=== PATIENT | female | born 1990 | race African-American/Black ===

== ENCOUNTER 2016-02-26 18:00 | Inpatient (IN) | payer OTHER ==
[~2016-02-26] VITALS: Ht 170.2 cm; Wt 93.4 kg
[~2016-02-26 18:00] MED LIST: PREN1TAB62 PO
[2016-02-26 21:00] VITALS: BP 98/58; PULSE 77; RESP 16
[2016-02-26 21:57] VITALS: Ht 170.2 cm; Wt 93.4 kg
[2016-02-26] MEDS ORDERED: CARBOPROST 250 MCG INJ IM PRN (22:00)
[2016-02-26] MEDS ORDERED: METHYLERGONOVINE 0.2 MG INJ IM PRN (22:00)
[2016-02-26] MEDS ORDERED: MISOPROSTOL 200 MCG TAB PR PRN (22:00)
[2016-02-26] MEDS ORDERED: OXYTOCIN 30 UNITS/LR 500 ML IV PRN (22:00)
[2016-02-26] MEDS ORDERED: BUTORPHANOL 2 MG INJ IV PRN (22:00)
[2016-02-26] MEDS ORDERED: LACTATED RINGER'S 1,000 ML IV PRN (22:00)
[2016-02-26] MEDS ORDERED: LIDOCAINE 1% (MPF) 30 ML INJ INJ PRN (22:00)
[2016-02-26] MEDS ORDERED: OXYTOCIN 30 UNITS/LR 500 ML IV SCH ×2 (22:00)
[2016-02-26] MEDS: LACTATED RINGER'S 1,000 ML IV SCH (22:01)
[2016-02-26 22:11] LABS: INR 0.94; PROTIME 12.6 Sec (12.2-14.2)
[2016-02-26 22:12] LABS: PARTIAL THROMBOPLASTIN TIME 28.9 Sec (25.0-35.0)
[2016-02-26 22:14] LABS: BASOPHILS % 0.4 % (0.0-2.0); EOSINOPHILS % 0.5 % (0.0-7.0); HEMATOCRIT 33.2 % (37.0-47.0); HEMOGLOBIN 11.1 g/dl (12.0-16.0); LYMPHOCYTES % 24.8 % (15.0-51.0); MEAN CORPUSCULAR HGB CONC 33.3 g/dl (32.0-37.0); MEAN PLATELET VOLUME 9.2 fl (7.4-10.4); MONOCYTE # 0.5 10^3/ul (0.3-0.9); MONOCYTES % 6.7 % (0.0-11.0); NEUTROPHIL # 5.4 10^3/ul (1.6-7.5); NEUTROPHILS % 67.6 % (39.0-77.0); PLATELET COUNT 205 10^3/UL (140-440); RED BLOOD COUNT 3.82 10^6/ul (4.20-5.40); RED CELL DISTRIBUTION WIDTH 13.9 % (11.5-14.5)
[2016-02-26 22:16] LABS: CONDITION 1
[2016-02-26 22:56] LABS: BARBITURATES NEGATIVE (NEGATIVE); BENZODIAZEPINES NEGATIVE (NEGATIVE); CANNABINOIDS NEGATIVE (NEGATIVE); COCAINE NEGATIVE (NEGATIVE); OPIATES NEGATIVE (NEGATIVE)
[2016-02-26] MEDS ORDERED: AMPICILLIN 2 GM/NS (PMX) 100 ML IV ONE (23:00)
[2016-02-26] MEDS ORDERED: MISOPROSTOL 25 MCG CAPSULE PO SCH (23:00)
[2016-02-26] MEDS ORDERED: MISOPROSTOL 100 MCG TAB PO SCH (23:30)
[2016-02-27] MEDS ORDERED: MISOPROSTOL 25 MCG CAPSULE PO SCH ×2 (01:00→03:00)
[2016-02-27] MEDS: AMPICILLIN 1 GM/NS (PMX) 50 ML IV SCH ×3 (02:27→11:00)
[2016-02-27] MEDS: LACTATED RINGER'S 1,000 ML IV SCH ×2 (04:40→07:11)
[2016-02-27] MEDS ORDERED: FENTAnyl 2MCG/ML-ROPIV 0.2% 100 ML ONE (05:37)
[2016-02-27] MEDS ORDERED: NALOXONE (0.4 MG/ML) INJ IV PRN (06:00)
[2016-02-27] MEDS ORDERED: FENTAnyl 2MCG/ML-ROPIV 0.2% 100 ML BAG EPI SCH (06:00)
[2016-02-27] MEDS ORDERED: MINERAL OIL LIGHT 10 ML VIAL TOP ONE (07:00)
--- NOTE | 2016-02-27 09:57 | HP ---
Date/Time of Note Date/Time of Note DATE: 02/27/16 TIME: 09:53 OB - History Hx of Present Free Text/Dictation 26 y//o female admitted in labor at term Last Menstrual Period: Jun 06, 2015 Estimated Due Date: Feb 25, 2016 : 3 Para: 1 Spontaneous : 1 Care: Good Care Ultrasounds: Normal mid trimester US Obstetrical Complications: None Medical Complications: None, Other (previous abdominal surgery ) Past Family/Social History * Past Medical, Surgical, Family and Obstetric Histories reviewed from chart. Blood Type: A+ Rubella: immune GBS Status: Negative HBsAG: Negative OB Admission Exam Vital Signs Vital Signs Vital Signs Date Time Temp Pulse Resp B/P Pulse Ox O2 Delivery O2 Flow Rate FiO2 02/26/16 21:00 98.7 77 16 98/58 Room Air Physical Exam HEENT: WNL Heart: Rhythm Normal Lungs: Clear, Equal Abdomen: WNL Extremities: Normal Reflexes: Normal Cervical Dilatation: 4cm Effacement: 75% Station: -3 Membranes: Intact Heart Rate: 140's Accelerations: Accelerations Present Decelerations: No Decelerations Varibility: Moderate Contractions on Admission: < 5 Minutes Apart Date/Time Contractions Began: 02/26/2015 Frequency of Contractions: q 5 Duration: >60 seconds Intensity: Moderate Last 72 hours Lab Results CBC & BMP 02/26/16 21:12 OB Assessment/Plan Other Assessment: term gestation labor pains Other plan: procees with labor CHEPE WALKER MD Feb 27, 2016 09:57
--- NOTE | 2016-02-27 10:52 | LDN ---
Date/Time of Note Date/Time of Note DATE: 02/27/16 TIME: 10:47 Delivery Summary vacuome extraction of a viable over intact perineum V/E was done because of deep variable deceleration of FHTs Assisted Vaginal Delivery: Vacuum Placenta Delivered: Spontaneously, Intact & Complete Meconium: none Perineum intact?: Yes Anesthesia type: Epidural Estimated blood loss: 300 Sponge & Needle done & correct: Yes All needle counts correct: Yes Any foreign bodies felt in the: No Problems: Infant Delivery Information Sex Sex: male Apgars 1 Minute: 9 5 Minute: 9 Suctioning Nose & mouth suctioned at james: Yes Delee suction performed: No Umbilical Cord Umbilical cord with: 3 Vessels Cord presentations: no nuchal cord Cord Blood was obtained: Yes Mother & Baby Disposition Disposition Mom & Baby to Maternity; Good: Yes (mother and baby were recovered in good condition ) CHEPE WALKER MD Feb 27, 2016 10:52
--- NOTE | 2016-02-27 12:51 | OPRPT ---
Intraop Record Datetime Report Generated by CPN: 02/27/2016 12:51 Datetime: 12/02/2015 21:08 Food Allergies/Reactions: PEACH SKIN Latex Allergies/Reactions: No Latex Allergies Datetime: 12/02/2015 21:06 Drug Allergies/Reactions: PT. DENIES Datetime: 12/02/2015 20:22 Drug Allergies/Reactions: peach/MO/HIVES (02/23/2015)
--- NOTE | 2016-02-27 12:51 | DELSUM ---
Delivery Summary A-C Datetime Report Generated by CPN: 02/27/2016 12:51 DELIVERY PERSONNEL Refrigerator Cabinetmaker: Mary Jane Carranza MATERNAL INFORMATION Delivery Anesthesia: Epidural Medications in Delivery: 30 UNITS OXYTOCIN/LR;MINERAL OIL Estimated Blood Loss (ml): 300 Placenta Cultured: No Maternal Complications: Other Other Maternal Complications: HX PP DEPRESSION, ANEMIA,MARIJUANA USE IN RN Comments: CORD TO LAB FOR DRUG SCREEN LABOR SUMMARY EDC: 02/25/2016 00:00 No. Babies in Womb: 1 Attempted: No Labor Anesthesia: Epidural LABOR INFORMATION Reason for Induction: Other Reason for Induction- Other: ELECTIVE/POST DATES/MD ORDERS Onset of Labor: 02/26/2016 22:55 Complete Dilatation: 02/27/2016 07:27 Cervical Ripening Agents: Cytotec @ Cervical Ripening Agents: Cytotec @ 50MCG PO Q4H MAX 6 DOSES, dose #1 given Oxytocin: N/A Group B Beta Strep: Positive (Annotations: PER PNR, URINE + FOR GBS) Antibiotics # of Doses: 3 Antibiotics Time of Last Dose: 06:02 Steroids Given: None Reason Steroids Not Administered: Not Applicable MEMBRANES Membranes Rupture Method: Artificial Rupture of Membranes: 02/27/2016 08:50 Length of Rupture (hr): 1.72 Amniotic Fluid Color: Clear Amniotic Fluid Color: Clear Amniotic Fluid Color: Clear Amniotic Fluid Color: Clear Amniotic Fluid Color: Clear Amniotic Fluid Color: Clear Amniotic Fluid Color: Clear Amniotic Fluid Color: Clear Amniotic Fluid Color: Clear Amniotic Fluid Amount: Moderate Amniotic Fluid Amount: Moderate Amniotic Fluid Amount: Moderate Amniotic Fluid Amount: Moderate Amniotic Fluid Amount: Moderate Amniotic Fluid Amount: Moderate Amniotic Fluid Amount: Moderate Amniotic Fluid Amount: Moderate Amniotic Fluid Amount: Moderate Amniotic Fluid Odor: None Amniotic Fluid Odor: None Amniotic Fluid Odor: None Amniotic Fluid Odor: None Amniotic Fluid Odor: None Amniotic Fluid Odor: None Amniotic Fluid Odor: None Amniotic Fluid Odor: None Amniotic Fluid Odor: None STAGES OF LABOR Stage 1 hr: 8 Stage 1 min: 32 Stage 2 hr: 3 Stage 2 min: 6 Stage 3 hr: 0 Stage 3 min: 2 Total Time in Labor hr: 11 Total Time in Labor min: 40 VAGINAL DELIVERY Episiotomy: None Laceration Extension: N/A Laceration Type: None Initial Vag Sponge Count: 20 Final Vag Sponge Count: 20 Initial Vag Sharps Count: 1 Final Vag Sharps Count: 1 Sponge Count Correct: Yes Sharps Count Correct: Yes BABY A INFORMATION Delivery Date/Time: 02/27/2016 10:33 Method of Delivery: Vaginal Born in Route : No : N/A Forceps: N/A Vacuum Extraction: Successful Shoulder Dystocia : No ASSISTED DELIVERY BABY A Indication for Assisted Delivery: recurrant decels with pushing Catheter Prior to Procedure: Yes Station Vacuum/Forcep Apply: +4 Position Vacuum/Forcep Apply: Left Occipital Anterior Vacuum Number of Pulls: 1 Vacuum Number of PopOffs: 0 Reduce Pressure btwn Ctx: na Vacuum Roll Grinder Operator: kiwi Total Time Vacuum Applied: 50 sec Vacuum/Forceps Comment: see dr dictation for max pressure-stayed in green SHOULDER DYSTOCIA BABY A Infant Delivery Date/Time: 02/27/2016 10:33 PRESENTATION/POSITION BABY A Presentation: Cephalic Presentation: Cephalic Presentation: Cephalic Presentation: Cephalic Presentation: Cephalic Cephalic Presentation: Vertex Vertex Position: Left Occipital Anterior Breech Presentation: N/A PLACENTA INFORMATION BABY A Placenta Delivery Time : 02/27/2016 10:35 Placenta Method of Delivery: Spontaneous Placenta Status: Delivered SCORES BABY A Heart Rate 1 min: >100 bpm Resp Effort 1 min: Good Cry Reflex Irritability 1 min: Cough/Sneeze/Pulls Away Muscle Tone 1 min: Active Motion Color 1 min: Body Vanleer, Extremit Blue Resuscitation Effort 1 min: Tactile Stimulation SCORE 1 MIN: 9 Heart Rate 5 min: >100 bpm Resp Effort 5 min: Good Cry Reflex Irritability 5 min: Cough/Sneeze/Pulls Away Muscle Tone 5 min: Active Motion Color 5 min: Body Vanleer, Extremit Blue Resuscitation Effort 5 min: Tactile Stimulation SCORE 5 MIN: 9 INFANT INFORMATION BABY A Gestational Age at Delivery: 40.2 Gestational Status: Full Term- 39- 40.6 Weeks Outcome : Liveborn Infant Condition : Stable Sex: Male IDENTIFICATION/MEDS BABY A ID Band Number: [id number] ID Band Location: Right Leg; Left Arm Sensor Applied: Yes Sensor Number: [id number] Sensor Location : Cord Clamp Vitamin K Given : Not Given Erythromycin Given: Not Given WEIGHT/LENGTH BABY A Infant Birthweight (gm): 3930 Infant Weight (lb): 8 Weight (oz): 11 Length (in): 21.50 Infant Length (cm): 54.61 CORD INFORMATION BABY A No. Cord Vessels: 3 Nuchal Cord : N/A Banking/Donate Info: N/A Suction: Mouth; Nose ASSESSMENT BABY A Infant Complications: Multiple Variable Decels Physical Findings at Delivery: Caput Succedaneum; Molding of the Head Infant Respirations: Appears Normal Pearl Glue Operator/ALS Called : Yes Infant Care By: nicu team Transferred To: Remains with Mother
[2016-02-27 13:00] VITALS: BP 108/73; PULSE 55; RESP 18
[2016-02-27 13:30] VITALS: BP 102/69; PULSE 58; RESP 18
[2016-02-27] MEDS ORDERED: LANOLIN 7 GM TUBE TOP PRN (13:30)
[2016-02-27] MEDS ORDERED: ZOLPIDEM 5 MG TAB PO PRN (13:30)
[2016-02-27] MEDS ORDERED: BENZOCAINE 20% 56 ML SPRAY TOP PRN (13:30)
[2016-02-27] MEDS ORDERED: CARBOPROST 250 MCG INJ IM PRN (13:30)
[2016-02-27] MEDS ORDERED: ACETAMINOPHEN/CODEINE #3 TAB PO PRN ×2 (13:30)
[2016-02-27] MEDS ORDERED: WITCH HAZEL/GLYCERIN PAD PR PRN (13:30)
[2016-02-27] MEDS ORDERED: MISOPROSTOL 200 MCG TAB PR PRN (13:30)
[2016-02-27] MEDS ORDERED: OXYTOCIN 30 UNITS/LR 500 ML IV PRN (13:30)
[2016-02-27] MEDS ORDERED: DIBUCAINE 1% 30 GM OINT PR PRN (13:30)
[2016-02-27] MEDS ORDERED: METHYLERGONOVINE 0.2 MG INJ IM PRN (13:30)
[2016-02-27] MEDS: LACTATED RINGER'S 1,000 ML IV* SCH ×2 (13:31→21:25)
[2016-02-27 16:00] VITALS: BP 95/60; PULSE 61; RESP 18
[2016-02-27] MEDS: CEPHALEXIN 500 MG CAP PO SCH ×2 (17:57→23:54)
[2016-02-27] MEDS: IBUPROFEN 600 MG TAB PO SCH ×2 (17:57→23:54)
[2016-02-27 20:00] VITALS: BP 97/60; PULSE 64; RESP 18
[2016-02-27] MEDS: MAGNESIUM HYDROXIDE 30ML CUP PO SCH (21:09)
[2016-02-27] MEDS: SENNA/DOCUSATE NA (8.6MG/50MG) TAB PO SCH (21:09)
[2016-02-28] VITALS: BP 95/61; PULSE 66; RESP 18
[2016-02-28 04:00] VITALS: BP 96/58; PULSE 72; RESP 18
[2016-02-28] MEDS: LACTATED RINGER'S 1,000 ML IV* SCH ×2 (05:25→13:25)
[2016-02-28] MEDS: CEPHALEXIN 500 MG CAP PO SCH ×3 (05:41→17:31)
[2016-02-28] MEDS: IBUPROFEN 600 MG TAB PO SCH ×3 (05:42→17:32)
[2016-02-28 08:21] LABS: BASOPHILS % 0.5 % (0.0-2.0); EOSINOPHILS % 0.5 % (0.0-7.0); HEMATOCRIT 28.9 % (37.0-47.0); HEMOGLOBIN 9.7 g/dl (12.0-16.0); LYMPHOCYTES # 2.7 10^3/ul (0.8-2.9); LYMPHOCYTES % 29.4 % (15.0-51.0); MEAN CORPUSCULAR HEMOGLOBIN 29.4 pg (29.0-33.0); MEAN CORPUSCULAR HGB CONC 33.4 g/dl (32.0-37.0); MEAN CORPUSCULAR VOLUME 88.1 fl (82.0-101.0); MEAN PLATELET VOLUME 9.4 fl (7.4-10.4); MONOCYTE # 0.6 10^3/ul (0.3-0.9); MONOCYTES % 6.3 % (0.0-11.0); NEUTROPHIL # 5.8 10^3/ul (1.6-7.5); NEUTROPHILS % 63.3 % (39.0-77.0); PLATELET COUNT 158 10^3/UL (140-440); RED BLOOD COUNT 3.28 10^6/ul (4.20-5.40); RED CELL DISTRIBUTION WIDTH 14.2 % (11.5-14.5); UNCORRECTED WBC 9.2 10^3/ul (4.8-10.8); WHITE BLOOD COUNT 9.2 10^3/ul (4.8-10.8)
[2016-02-28 08:30] VITALS: BP 106/61; PULSE 61; RESP 18
[2016-02-28 08:46] LABS: CONDITION 1
[2016-02-28] MEDS: SENNA/DOCUSATE NA (8.6MG/50MG) TAB PO SCH ×2 (09:00→21:02)
[2016-02-28] MEDS: MAGNESIUM HYDROXIDE 30ML CUP PO SCH ×2 (09:00→21:02)
[2016-02-28 16:49] VITALS: BP 105/58; PULSE 68; RESP 18
--- NOTE | 2016-02-28 16:56 | PSY ---
Date/Time of Note Date/Time of Note DATE: 02/28/16 TIME: 16:40 Psychiatric Subjective Eval Consent Pt consented to telemedicine: Yes Subjective Evaluation Patient location: inpatient Chief Complaint: Post , history of post depression Reason for consult: Psychiatric assessment History of present illness This is a 26 year old female who just delivered an 8 pound 11 ounce boy. She reports having a good relationship with the father and good support from her family. She denies any psychiatric complaint at this time. She scored high in the SBC; hence the reason for the psychiatric consult. She has a 3 year old child, and acknowledged that she experienced post symptoms. She described her symptoms as having poor self esteem, anhedonia, excessive worry, problems falling asleep, feelings of worthlessness, excessive guilt, lack of energy and motivation and thoughts that life was not worth living. Past psychiatric history Past Psychiatric history: She attempted suicide about 5 years ago. She overdosed on over the counter medications and alcohol. Family History Family history: She is not aware of any family history at this time. Medical history Problems Medical Problems: (1) Pelvic pain Status: Acute Allergies: Uncoded Allergies: PEACH SKIN (Allergy, Mild, BODY HIVES, 02/27/16) Substance Abuse Substance use: No known substance abuse (She has smoked marijuana on occasion. ) Substance abuse history: No Prior substance abuse treatmen: No Social History Marital status: single Level of education: high school DPA/Conservatorship: No Psychiatric Objective Eval Review of Systems: Review of Systems: Not Applicable Constitutional: Normal Eyes: Normal ENT: Normal Neck: Normal Respiratory: Normal Chest/Breast: Normal Cardiovascular: Normal GI: Normal Genitourinary: Normal Skin: Normal Lymphatic: Normal Musculoskeletal: Normal Neurological: Normal Other: mild pelvic pain Mental Status Examination: Appearance: Groomed Eye Contact: Good Psychomotor Activity: Normal Behavior: Friendly, Cooperative Speech: Clear AFFECT: Appropriate Mood: Appropriate/Full Though Process: Linear Thought Content: Normal Suicidal: No Homicidal: No On 72 hour hold: No Orientation: x4 Cognition: Alert Insight: Intact Judgement: Intact Attention Span: Intact Laboratory Results Laboratory Tests Test 02/26/16 21:12 02/26/16 22:20 02/28/16 07:05 Activated Partial Thromboplast Time 28.9Sec Basophils # 0.010^3/ul 0.010^3/ul Basophils % 0.4% 0.5% Blood Morphology Comment Eosinophils # 0.010^3/ul 0.010^3/ul Eosinophils % 0.5% 0.5% Hematocrit 33.2% 28.9% Hemoglobin 11.1g/dl 9.7g/dl INR International Normalized Ratio 0.94 Lymphocytes # 2.010^3/ul 2.710^3/ul Lymphocytes % 24.8% 29.4% Mean Corpuscular Hemoglobin 29.0pg 29.4pg Mean Corpuscular Hemoglobin Concent 33.3g/dl 33.4g/dl Mean Corpuscular Volume 87.0fl 88.1fl Mean Platelet Volume 9.2fl 9.4fl Monocytes # 0.510^3/ul 0.610^3/ul Monocytes % 6.7% 6.3% Neutrophils # 5.410^3/ul 5.810^3/ul Neutrophils % 67.6% 63.3% Nucleated Red Blood Cells # 0.010^3/ul 0.010^3/ul Nucleated Red Blood Cells % 0.0/100WBC 0.0/100WBC Platelet Count 04678^3/UL 18689^3/UL Prothrombin Time 12.6Sec Prothrombin Time Ratio 1.0 Rapid Plasma Reagin NONREACTIVE Red Blood Count 3.8210^6/ul 3.2810^6/ul Red Cell Distribution Width 13.9% 14.2% White Blood Count 8.010^3/ul 9.210^3/ul Urine Amphetamines Screen NEGATIVE Urine Barbiturates NEGATIVE Urine Benzodiazepines Screen NEGATIVE Urine Cannabinoids NEGATIVE Urine Cocaine Screen NEGATIVE Urine Opiates Screen NEGATIVE Assessment and Plan Assessment/Diagnosis [place] I: 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 [place] II: no psychiatric diagnosis on [place] II Al[place] III: Post [place] IV: none noted [place] V: 70 Recommendation/Plan Medication Management The patient may benefit from Zoloft 50 to 100mg daily. This would be through her consent and discussion with her treating physician and her son's supervisor component assembler. The issue is risk of poor bonding from depression vs. unknown complication with the fetus. Below are websites of interest: Zoloft and breast feeding. https://www.[employer].com//sertraline.html https://www.ncbi.nlm.nih.gov/pmc/articles/XSU0558878/ Womens mental health: www.womensmentalhealth.org Pt. Caregiver/Family Education The patient may elect not to take Zoloft until early signs of depression may appear. It would be sarabia for her to have it available so treatment would not be delayed when the arise. Follow-up/Disposition She can be safely discharged psychiatrically once she is medically cleared. BEST STONE MD Feb 28, 2016 16:54
--- NOTE | 2016-02-28 19:46 | DS ---
Date/Time of Note Date/Time of Note home next day DATE: 02/28/16 TIME: 19:45 Obstetrical Discharge Record Final Diagnosis Final Diagnosis: Term delivered Other Final Diagnosis S/P vaginal delivery Vaginal Delivery Obstetrical Delivery: Vacuum Extraction, Laceration, Repaired Condition on Discharge Physical Assessment Last Vitals: see nurses notes Voiding: Yes Bowel Movement: Yes Breast: Soft, non-tender, Filling Fundus: Firm Abdomen and Incision: soft BS + Episiotomy: NA perineum : healing Calf Tenderness: No Patient Condition: Good CHEPE WALKER MD Feb 28, 2016 19:46
--- NOTE | 2016-02-28 19:48 | PD.PPDC ---
[facility]ING [facility] Discharge Instruction Provider Information Physician Information 26 y/o female had vaginal delivery Diagnosis Final Diagnosis: S/P vaginal delivery Condition Patient Condition: Good Diet Diet: Resume Regular Diet Activity/Restrictions Activity: Normal Activity May Shower Restrictions: Nothing in the Vagina Return to Work or School: Apr 15, 2016 Follow-up Follow-up with Physician: 4, Week/Weeks (in clinic ) Return to clinic for OB Instructions: Breast Tenderness Depression Comment: vaginal bleeding pelvic rest x 6 weeks CHEPE WALKER MD Feb 28, 2016 19:48
[2016-02-28] MEDS ORDERED: IBUP-1542 PO (19:49)
[2016-02-28 20:15] VITALS: BP 103/56; PULSE 69; RESP 18
[2016-02-29 04:00] VITALS: BP 94/64; PULSE 66; RESP 18
[2016-02-29] MEDS: IBUPROFEN 600 MG TAB PO SCH ×3 (06:05→12:31)
[2016-02-29] MEDS: CEPHALEXIN 500 MG CAP PO SCH ×3 (06:05→12:31)
[2016-02-29 08:15] VITALS: BP 92/55; PULSE 76; RESP 16
[2016-02-29] MEDS: MAGNESIUM HYDROXIDE 30ML CUP PO SCH (09:00)
[2016-02-29] MEDS ORDERED: VARICELLA VACCINE LIVE/PF 1,350 UNIT/0.5 ML ML SC* ONE (09:00)
[2016-02-29] MEDS ORDERED: DIPHTH/TET/ACEL PERTUSS (ADULT) 0.5 ML VIAL IM* ONE (09:00)
[2016-02-29] MEDS ORDERED: MEASLES,MUMPS,RUBELLA VACCINE INJ SC* ONE (09:00)
[2016-02-29] MEDS: SENNA/DOCUSATE NA (8.6MG/50MG) TAB PO SCH (09:00)
== END 2016-02-29 13:40 | disposition home or self-care (01) | DRG 775 ==
LOC: L-D 20:45 → PP1 02-27 12:59
PROVIDERS: ADMIT Obstetrics & Gynecology; ATTEND Obstetrics & Gynecology
PROC: 10D07Z6 Extraction of Products of Conception, Vacuum, Via Natural or Artificial Opening (ICD-10-PCS; principal; 2016-02-27)
PROC: 3E0P7GC Introduction of Other Therapeutic Substance into Female Reproductive, Via Natural or Artificial Opening (ICD-10-PCS; 2016-02-27)
PROC: 0HQ9XZZ Repair Perineum Skin, External Approach (ICD-10-PCS; 2016-02-27)
DX: O48.0 Post-term pregnancy (principal); O99.824 Streptococcus B carrier state complicating childbirth; Z3A.40 40 weeks gestation of pregnancy; O70.0 First degree perineal laceration during delivery; Z37.0 Single live birth
CPT/HCPCS: 62319; 80307; 85025; 85610; 85730; 86592; 86900; 86901; 90715; 90716; 99464; J0290; J2590; J3010; J7120